=== PATIENT | female | born 1960 | race Asian ===

== ENCOUNTER → 2019-03-13 | Outpatient (CLI) | payer OTHER ==
--- NOTE | 2019-03-13 10:04 | Diagnostic Imaging Report ---
EXAMINATION: SP LUMBAR, COMPLETE MIN 4VW INDICATION: Lower back pain COMPARISON: None FINDINGS: AP, lateral, and oblique images of the lumbar spine were obtained. No compression fracture. Vertebral body heights are well-maintained. Grade 1 retrolisthesis at L3-4 and L4-5. Alignment is otherwise anatomic. Mild multilevel degenerative changes with small osteophyte formation and mild facet arthropathy at the lower lumbar spine. IMPRESSION: No acute osseous injury. Mild degenerative changes and alignment abnormalities as above. Signed by: María Mancilla MD on 03/13/2019 10:01 AM
== END ==
LOC: RAD 08:55
PROVIDERS: ATTEND Family Medicine
DX: Z12.31 Encounter for screening mammogram for malignant neoplasm of breast (principal); M54.5 Low back pain
CPT/HCPCS: 72110; 77067

== ENCOUNTER → 2019-03-26 | Outpatient (CLI) | payer OTHER ==
--- NOTE | 2019-03-26 16:45 | Diagnostic Imaging Report ---
EXAM: Renal Ultrasound INDICATION: ^[id number] ^[id number] ^HEMATURIA COMPARISON: None TECHNIQUE: Transverse and longitudinal images of the kidneys and bladder were obtained. FINDINGS: Right Kidney: Length: 11.0 cm Appearance: Normal echogenicity. Collecting system: No hydronephrosis Stones: None Cyst/Mass: None Left Kidney: Length: 11.5 cm Appearance: Normal echogenicity. Collecting system: No hydronephrosis Stones: None Cyst/Mass: None Bladder: No mass or calculi. Bilateral ureteral jets visualized. Prevoid volume estimate of 750 cc. IMPRESSION: No hydronephrosis or renal calculi. Signed by: María Mancilla MD on 03/26/2019 4:41 PM
--- NOTE | 2019-03-26 16:48 | Diagnostic Imaging Report ---
Exam: Pelvic ultrasound. History: Pelvic pain Comparison: None Findings: Status post total abdominal hysterectomy and bilateral salpingo-oophorectomy. Subcentimeter nabothian cysts in the cervix. No free fluid in the pelvis. Impression: Unremarkable pelvic ultrasound status post WOODROW/BSO. Signed by: María Mancilla MD on 03/26/2019 4:44 PM
== END ==
LOC: US 15:39
PROVIDERS: ATTEND Family Medicine
DX: R10.2 Pelvic and perineal pain (principal); R31.9 Hematuria, unspecified
CPT/HCPCS: 76770; 76830